=== PATIENT | male | born 1965 | race Caucasian/White ===

== ENCOUNTER 2018-12-23 08:13 | Emergency (ER) | payer BC ==
[~2018-12-23] VITALS: Ht 175.3 cm; Wt 72.6 kg
--- NOTE | 2018-12-23 08:35 | NUR ---
DR Shaikh at the bedside for MSE.
[2018-12-23] MEDS: IBUPROFEN 800 MG TABLET PO ONE (08:54)
[2018-12-23] MEDS ORDERED: IBUPROFEN 800 MG TABLET ONE (08:55)
--- NOTE | 2018-12-23 09:01 | NUR ---
Pt out of ER for CT.
--- NOTE | 2018-12-23 09:18 | NUR ---
Pt back from CT, resting in bed.
--- NOTE | 2018-12-23 10:22 | NUR ---
Patient discharged to home in stable conditon. Written and verbal after care instructions given. Patient verbalizes understanding of instructions.
[2018-12-23 10:23] VITALS: BP 124/78
== END 2018-12-23 10:23 | disposition home or self-care (01) ==
LOC: ER 08:13
DX: S80.02XA Contusion of left knee, initial encounter (principal); S13.4XXA Sprain of ligaments of cervical spine, initial encounter; K21.9 Gastro-esophageal reflux disease without esophagitis; V49.49XA Driver injured in collision with other motor vehicles in traffic accident, initial encounter; Y93.89 Activity, other specified; Y92.89 Other specified places as the place of occurrence of the external cause; Y99.8 Other external cause status
CPT/HCPCS: 70450; 72125; A4663